=== PATIENT | female | born 1975 | race Caucasian/White ===

== ENCOUNTER 2020-06-20 11:49 | Emergency (ER) | payer OTHER ==
[~2020-06-20] VITALS: Ht 152.4 cm; Wt 118.4 kg
[~2020-06-20 11:49] MED LIST: COUMADIN5 MG PO; LAC PO; LEVOFLOXACIN500 M1 PO; LOTENSIN10 MG; METFORMIN HCL1000 MG PO; VENTOLIN H0.09 MG/A1 INH; XARELTO15 M1 PO
[2020-06-20 12:50] VITALS: Ht 152.4 cm; Wt 118.4 kg
[2020-06-20 13:30] LABS: CHLORIDE SERUM 103 mmol/L (98-107); CREATININE SERUM 0.7 mg/dL (0.6-1.0); GFR1 > 60 mL/min; GLUCOSE SERUM 235 mg/dL (74-106); POTASSIUM SERUM 4.5 mmol/L (3.5-5.1); SODIUM SERUM 136 mmol/L (136-145)
[2020-06-20 13:35] LABS: ALBUMIN 3.2 g/dL (3.4-5.0); ALKALINE PHOSPHATASE 122 U/L (46-116); ALT/SGPT 51 U/L (14-59); AST/SGOT 28 U/L (15-37); BILIRUBIN TOTAL 0.2 mg/dL (0.20-1.00); TOTAL PROTEIN, SERUM 7.4 g/dL (6.4-8.2)
[2020-06-20 13:37] LABS: BASOPHIL % 0.5 % (0-2); PLATELET COUNT 331 x10^3mcL (130-400); RED CELL DISTRIBUTION WIDTH 14.2 % (11.5-14.5)
[2020-06-20 14:39] VITALS: BP 126/66
== END 2020-06-20 14:39 | disposition home or self-care (01) ==
LOC: ED 11:49
DX: N39.0 Urinary tract infection, site not specified (principal); I10 Essential (primary) hypertension; E11.9 Type 2 diabetes mellitus without complications